=== PATIENT | female | born 1970 | race African-American/Black ===

== ENCOUNTER 2017-10-25 14:27 | Observation (INO) | payer OTHER ==
[~2017-10-25] VITALS: Ht 160 cm; Wt 82.3 kg
[~2017-10-25 14:27] MED LIST: AMOXICILLIN-CL1 EACH PO; BACTRIM,SEPT1 TABLET PO; CEFTIN500 MG PO; CIPRO500 MG PO; DILAUDID2 MG PO; DITROPAN XL10 MG PO; DOCUSATE SODIU100 MG PO; ENDOCET 5-3251 EACH PO; FEROSUL325 MG PO; FIORICET WI1 CAPSULE PO; GELNIQUE 10%30 GM TD; GELNIQUE92 GM TD; IBUPROFEN600 MG PO; IRON325 M1 PO; LORTAB 5-325 M1 EACH PO; MEDROL DOSEPAK4 MG PO; MEGACE20 MG PO; METOCLOPRAM5 MG/1 M1 IV; METOCLOPRAM5 MG/1 M1 PO; METOCLOPRAMIDE10 MG PO; MOTRIN800 MG PO; NAPROSYN500 MG PO; NAPROXEN500 MG PO; PANTOPRAZOLE SO40 MG PO; PERCOCET 5/31 TABLET PO; PREDNISONE20 MG PO; PROMETHAZINE HC50 M1 PO; PROTONIX40 MG PO; PROVERA,CYCRIN10 MG PO; Percocet 5/325,Endoc PO; TYLENOL EXTRA500 MG PO; ZITHROMAX TRI-500 MG PO; ZOFRAN ODT4 MG PO
[2017-10-25 16:33] LABS: HEMATOCRIT 43.4 % (36.0-46.0); MCH 29.8 PG (29.0-34.0); MCV 85.1 FL (83-99); MEAN PLAT.VOLUME 9.2 uM^3 (9.5-12.4); PLATELET COUNT 315 K/uL (156-360); RBC DIS.WIDTH-CV 12.8 % (11.8-14.6); RBC DIS.WIDTH-SD 39.6 % (39-53); WHITE BLOOD COUNT 11.8 K/uL (4.1-10.2)
[2017-10-25 16:44] LABS: CHLORIDE 105 mEq/L (99-109); POTASSIUM 3.8 mEq/L (3.7-5.4); SODIUM 138 mEq/L (136-147)
[2017-10-25 16:46] LABS: GLUCOSE 118 mg/dL (70-99)
[2017-10-25 16:47] LABS: ANION GAP 7 MEQ/L (2-14)
[2017-10-25 16:50] LABS: GFR ESTIMATE (CALCULATED) > 59 mL/min/
[2017-10-25 16:51] LABS: UREA NITROGEN (BUN) 6 mg/dL (9-23)
[2017-10-25 16:55] LABS: TROP-I INTERPRETATION NEGATIVE; TROPONIN-I < 0.01 ng/mL (0.0-0.30)
[2017-10-25] MEDS ORDERED: DAILY VALUE1 EACH PO (17:25)
[2017-10-25] MEDS ORDERED: VENTOLIN HFA18 GM IH (17:25)
[2017-10-25] MEDS ORDERED: FISH OIL 1,0001 EAC7 PO (17:25)
[2017-10-25 20:41] LABS: TOTAL BILIRUBIN 0.3 mg/dL (0.0-1.0)
[2017-10-25 20:42] LABS: ALKALINE PHOSPHATASE 55 IU/L (3-129)
[2017-10-25 20:45] LABS: DIRECT BILIRUBIN 0.1 mg/dL (0.0-0.3)
[2017-10-26 05:15] LABS: HEMATOCRIT 45.9 % (36.0-46.0); MCH 29.5 PG (29.0-34.0); MCHC 34.6 G/DL (30.0-36.0); MCV 85.2 FL (83-99); MEAN PLAT.VOLUME 9.4 uM^3 (9.5-12.4); PLATELET COUNT 322 K/uL (156-360); RBC DIS.WIDTH-CV 12.9 % (11.8-14.6); RED BLOOD COUNT 5.39 M/uL (3.80-5.20); WHITE BLOOD COUNT 13.2 K/uL (4.1-10.2)
[2017-10-26 05:33] LABS: TROP-I INTERPRETATION NEGATIVE; TROPONIN-I < 0.01 ng/mL (0.0-0.30)
[2017-10-26 07:20] LABS: Estimated Average Glucose 114 mg/dL (70-123)
[2017-10-26 07:47] LABS: HEMOGLOBIN A1c (GLYCOHEMOGLOB) 5.6 % HGB (Below 5.7)
[2017-10-26 08:37] LABS: HDL CHOLESTEROL 50 MG/DL (Desirable>=50); LDL CHOLESTEROL 161 mg/dL (Desirable<100); NON-HDL CHOLESTEROL 182 mg/dL (Desirable<160); TOTAL CHOLESTEROL 232 mg/dL (Desirable<200); TRIGLYCERIDES 104 MG/DL (Normal: <150)
[2017-10-26 12:14] LABS: AMPHETAMINES QUANT VALUE 0 NG/ML; BARBITUATES QUANT VALUE 0 NG/ML; BENZODIAZEPINES QUANT VALUE 0 NG/ML; BENZODIAZEPINES, URINE SCREEN Negative (200 ng/mL); OPIATES QUANTITATIVE VALUE 0 NG/ML; PHENCYCLIDINE QUANT VALUE 0 NG/ML
[2017-10-26 13:29] LABS: ADD MIUA? NO; BILIRUBIN NEGATIVE; BLOOD NEGATIVE; COLOR STRAW ((YELLOW)); GLUCOSE (STRIP) NEGATIVE; KETONES NEGATIVE; LEUKOCYTES NEGATIVE; NITRITE NEGATIVE; PROTEIN (STRIP) NEGATIVE; UCUL ADDED? NO; UROBILINOGEN 0.2 MG/DL (0.2-1.0)
[2017-10-26 16:23] VITALS: BP 149/77
[2017-10-26 21:00] VITALS: BP 157/73
[2017-10-27 00:17] VITALS: BP 134/73
[2017-10-27 03:39] VITALS: BP 116/68
[2017-10-27] MEDS ORDERED: ASPIRIN81 M2 PO (07:50)
[2017-10-27] MEDS ORDERED: NICOTINE PATCH1 EAC2 TD (07:50)
[2017-10-27] MEDS ORDERED: VENTOLIN HFA18 GM IH (07:51)
[2017-10-27] MEDS ORDERED: ELAVIL10 MG PO (07:51)
[2017-10-27] MEDS ORDERED: PRAVACHOL20 MG PO (07:52)
== END 2017-10-27 09:10 | disposition home or self-care (01) ==
LOC: EME 14:27 → EDOF 19:19 → ENRESERV 19:22 → EDOF 10-26 01:29 → ENRESERV 10-26 14:51 → 5WEST 10-26 16:18 → ENPENDDIS 10-27 → 5WEST 10-27 09:10
PROVIDERS: Emergency Medicine; Hospitalist; Physician Assistant Medical
DX: R55 Syncope and collapse (principal); G43.909 Migraine, unspecified, not intractable, without status migrainosus; R07.89 Other chest pain; J43.9 Emphysema, unspecified; M75.21 Bicipital tendinitis, right shoulder; E78.5 Hyperlipidemia, unspecified; F17.210 Nicotine dependence, cigarettes, uncomplicated; F12.90 Cannabis use, unspecified, uncomplicated; M25.511 Pain in right shoulder; R42 Dizziness and giddiness; R06.02 Shortness of breath; G47.33 Obstructive sleep apnea (adult) (pediatric); Z91.19 Patient's noncompliance with other medical treatment and regimen; R11.2 Nausea with vomiting, unspecified; R19.7 Diarrhea, unspecified; K21.9 Gastro-esophageal reflux disease without esophagitis; N32.81 Overactive bladder; E66.9 Obesity, unspecified; Z68.32 Body mass index [BMI] 32.0-32.9, adult; Z86.19 Personal history of other infectious and parasitic diseases; Z90.710 Acquired absence of both cervix and uterus; Z90.721 Acquired absence of ovaries, unilateral; Z90.79 Acquired absence of other genital organ(s); Z80.1 Family history of malignant neoplasm of trachea, bronchus and lung; Z82.5 Family history of asthma and other chronic lower respiratory diseases
CPT/HCPCS: 70450; 71275; 80048; 80061; 80076; 80306 90; 81003; 83036; 84443; 84484; 85027; 87493; 87502; 93005; 94640; 94660; 95819; 99202; 99281; 99285; G0378; J1200; J1650; J2930; J7030

== ENCOUNTER 2018-02-06 12:05 | Emergency (ER) | payer OTHER ==
[~2018-02-06] VITALS: Ht 160 cm; Wt 85.3 kg
[~2018-02-06 12:05] MED LIST changes: +ASPIRIN81 M2 PO; +DAILY VALUE1 EACH PO; +ELAVIL10 MG PO; +FISH OIL 1,0001 EAC7 PO; +NICOTINE PATCH1 EAC2 TD; +PRAVACHOL20 MG PO; +VENTOLIN HFA18 GM IH
[2018-02-06 12:10] VITALS: BP 133/93
[2018-02-06] MEDS ORDERED: MOTRIN600 MG PO (15:17)
[2018-02-06] MEDS ORDERED: KEFLEX500 MG PO (15:17)
[2018-02-06] MEDS ORDERED: PERCOCET 5/31 TABLET PO (15:17)
== END 2018-02-06 16:05 | disposition home or self-care (01) ==
LOC: EME 12:05
PROC: 0H9CXZX Drainage of Left Upper Arm Skin, External Approach, Diagnostic (ICD-10-PCS; principal; 2018-02-06)
DX: L02.412 Cutaneous abscess of left axilla (principal); Z88.6 Allergy status to analgesic agent
CPT/HCPCS: 87070; 87075; 87077; 87147; 87186; 87205; 99281; 99285

== ENCOUNTER 2018-02-08 11:08 | Emergency (ER) | payer OTHER ==
[~2018-02-08] VITALS: Ht 160 cm; Wt 86.2 kg
[~2018-02-08 11:08] MED LIST changes: +KEFLEX500 MG PO; +MOTRIN600 MG PO
[2018-02-08 12:47] VITALS: BP 136/82
== END 2018-02-08 12:48 | disposition home or self-care (01) ==
LOC: EME 11:08
DX: L02.412 Cutaneous abscess of left axilla (principal); Z87.891 Personal history of nicotine dependence; Z88.6 Allergy status to analgesic agent
CPT/HCPCS: 99281; 99283